=== PATIENT | male | born 1935 | race Caucasian/White ===

== ENCOUNTER 2025-09-13 05:23 | Day surgery (SDC) | payer MEDICARE ==
[2025-09-10 14:03] LABS: MEAN PLATELET VOLUME 8.8 FL (7.4-10.4); PRE OP HEMATOCRIT 40.4 % (42.0-52.0); PRE OP HEMOGLOBIN 13.5 g/dL (14.0-17.9); PRE OP PLATELET COUNT 195 X10'3 (140-440); PRE OP WHITE BLOOD COUNT 11.6 10'3 (4.8-10.8); RED CELL DISTRIBUTION WIDTH 14.5 % (11.5-14.5)
[2025-09-10 14:30] LABS: CREATININE 1.50 MG/DL (0.60-1.10); PRE OP ALT 31 U/L (30-65); PRE OP ANION GAP 9 (8-16); PRE OP AST 38 U/L (10-37); PRE OP BILIRUB, TOTAL 1.3 MG/DL (0.0-1.0); PRE OP GLUCOSE 126 MG/DL (70-104); PRE OP POTASSIUM 4.9 MMOL/L (3.4-5.1); PRE OP SODIUM 139 MMOL/L (135-145); TOTAL CARBON DIOXIDE 27.3 MMOL/L (24-32); eGFR 44 ML/MIN
[~2025-09-13] VITALS: Ht 175.3 cm; Wt 95.4 kg
[~2025-09-13 05:23] MED LIST: ALLO100T49 PO; ASPI-1071 PO; ATOR40TA71 PO; DILT240C94 PO; FURO-150 PO; GLIM4TAB7 PO; LEVO50CA5 PO; LISI-643 PO; METF-436 PO; METO-384 PO; POTA10CA95 PO
[2025-09-13] MEDS ORDERED: LIDOcaine 2% (20mg/ml) 5ml vial ONE (05:27)
[2025-09-13] MEDS ORDERED: BUPIVAcaine/PF 2.5mg/ml (0.25%) 10ml vial ONE (05:27)
[2025-09-13 05:45] VITALS: BP 140/78; PULSE 80; RESP 16; TEMP 98.2; O2SAT 98
[2025-09-13] MEDS: ringers solution, lacted 1,000 ML IV SCH (06:02)
[2025-09-13] MEDS: ceFAZolin 2gm/dext,iso 50mL 50 ML IV ONE (06:04)
[2025-09-13] MEDS: DOCUMENT DATE & TIME OF BETA-BLOCKER PO ONE (06:04)
[2025-09-13] MEDS ORDERED: propofol inj 20 ML IV ONE (07:26)
[2025-09-13 07:47] VITALS: BP 102/46; PULSE 80; RESP 16; O2SAT 99
[2025-09-13 07:57] VITALS: BP 111/67; PULSE 80; RESP 14; O2SAT 97
[2025-09-13 08:07] VITALS: BP 128/69; PULSE 80; RESP 19; O2SAT 97
[2025-09-13 08:17] VITALS: BP 119/70; PULSE 80; RESP 15; O2SAT 99
--- NOTE | 2025-09-13 19:01 | OPERATIVE REPORT ---
Operative Report Providers to ~ Date of Procedure: Sep 13, 2025 Pre-Operative Diagnosis: Right wrist carpal tunnel syndrome Post-Operative Diagnosis SAME as PRE-Op Procedure Performed Right wrist open carpal tunnel release Surgeon: Regis Case MD Sterile Supervisor None Anesthesiologist: Jairo Fuller Type of Anesthesia: Other (Local) Findings: Estimated Blood Loss: None Specimen Removed: None Description of Procedure: The patient is a 82-year-old man with carpal tunnel syndrome refractory to nonsurgical treatment. Surgery is indicated to relieve symptoms. Risks and benefits were discussed with the patient and he agreed to proceed. He was brought to the operating room where a time-out procedure was performed. The arm was prepped and draped in usual manner with a tourniquet on the forearm. Local anesthetic was infiltrated proximal to the wrist crease. A 3 cm incision was made in the palm ulnar to the thenar crease in line with the radial side of the ring finger through skin and palmar fascia. Blunt dissection was done to the transverse carpal ligament which was then opened in line with the skin incision. Distal release was done along with a proximal release into the forearm. The nerve was decompressed. The incision was irrigated and closed with nylon suture. Sterile dressing was applied and the tourniquet was released. The hand perfused well and he was taken to the recovery room in stable condition. REGIS CASE Jr., MD Sep 13, 2025 19:01
== END 2025-09-13 08:17 | disposition home or self-care (01) ==
LOC: PAS 05:23
PROVIDERS: ATTEND Orthopaedic Surgery Hand Surgery
DX: G56.03 Carpal tunnel syndrome, bilateral upper limbs (principal); E11.9 Type 2 diabetes mellitus without complications; G47.33 Obstructive sleep apnea (adult) (pediatric); I11.0 Hypertensive heart disease with heart failure; I50.9 Heart failure, unspecified; J45.909 Unspecified asthma, uncomplicated; M10.9 Gout, unspecified; Z95.0 Presence of cardiac pacemaker; Z98.890 Other specified postprocedural states; Z87.891 Personal history of nicotine dependence; Z79.890 Hormone replacement therapy; Z79.84 Long term (current) use of oral hypoglycemic drugs
CPT/HCPCS: 36415; 64721; 80053; 82948; 85025; A4215; A6449; J2003; J2704; J3490; J7030; J7120; Z7506; Z7512; Z7610